=== PATIENT | female | born 1985 | race Caucasian/White ===

== ENCOUNTER 2022-01-15 11:46 | Emergency (ER) | payer BC, OTHER ==
[2022-01-15] MEDS ORDERED: Acetaminophen 500 MG TAB ONE (12:24)
[2022-01-15 12:48] LABS: Bilirubin Neg (Negative); Blood, Urine 250 (Negative); Clarity Clear (Clear); Glucose, Urine (Dipstick) Normal (Negative); Ketone, Urine Negative (Negative); Leukocyte Negative (Negative); Nitrite Negative (Negative); Protein, Urine (Dipstick) Negative (Neg-Trace); Urobilinogen Normal mg/dL (Less than 2)
[2022-01-15 12:58] LABS: #Eosinphils 0.1 10x3/uL (0.0-0.5); #Monocytes 0.4 10x3/uL (0.0-1.1); #Neutrophils 4.7 10x3/uL (1.5-8.4); %Basophils 0.4 % (0.0-2.0); %Eosinophils 1.2 % (0.0-6.0); %Lymphocytes 7.1 % (18.0-47.0); %Monocytes 7.4 % (0.0-10.0); %Neutrophils 83.5 % (40.0-75.0); Hemoglobin 13.1 g/dL (12.0-15.5); Mean Corpuscular HGB CONC 33.3 g/dL (32.0-36.0); Mean Corpuscular Hemoglobin 27.6 pg (27.0-33.0); Mean Corpuscular Volume 82.7 fl (81.6-98.3); Mean Platelet Volume 8.9 fl (7.4-10.4); Platelet Count 351 10x3/uL (150-450); RBC Distribution Width 12.9 % (11.5-14.5); Red Blood Cell (RBC) Count 4.75 10x6/uL (3.90-5.03); White Blood Cell (WBC) Count 5.7 10x3/uL (3.5-10.5)
[2022-01-15 13:05] LABS: BHCG - Serum Negative (NEGATIVE); Pregs Control Background? CLEAR/WHITE (CLR/WHITE); Pregs Control Bar Appear? YES (CONTROL BAR)
[2022-01-15 13:13] LABS: ALT (SGPT) 15 U/L (8-55); AST (SGOT) 16 U/L (5-34); Albumin 4.5 g/dL (3.5-5.0); Alkaline Phosphatase 63 U/L (40-110); Anion Gap 17 mmol/L (10-20); BUN (Urea Nitrogen) 11 mg/dL (7.0-18.7); Bilirubin, Total 0.4 mg/dL (0.2-1.2); Calc. Creatinine Clearance 0 mL/min (70-130); Calcium 9.3 mg/dL (7.8-10.44); Carbon Dioxide 24 mmol/L (22-29); Chloride 106 mmol/L (98-107); Globulin 2.9 g/dL (2.4-3.5); Glucose 88 mg/dL (70-105); Protein, Total 7.4 g/dL (6.0-8.3); Sodium 143 mmol/L (136-145)
[2022-01-15 13:16] LABS: Bacteria/HPF None Seen HPF (None Seen); Squamous Epithelial 0-3 HPF (0-3); WBC/HPF 0-3 HPF (0-3)
[2022-01-15] MEDS ORDERED: Fentanyl 100 MCG/2 ML VIAL ONE ×2 (14:33→17:16)
[2022-01-15] MEDS ORDERED: Promethazine HCl 25 MG/ML VIAL ONE (14:34)
[2022-01-15] MEDS ORDERED: Iopamidol 300 61% 100 ML VIAL FS ONE (15:26)
[2022-01-15] MEDS ORDERED: Ibuprofen 200 MG TAB ONE (17:17)
== END 2022-01-15 17:50 | disposition home or self-care (01) ==
LOC: CSHERS 11:46
DX: R10.31 Right lower quadrant pain (principal)
CPT/HCPCS: 74177; 76856; 80053; 81003; 81015; 84703; 85025; 96374; 96375; 96376; J2550; J3010; Q9967